=== PATIENT | female | born 1985 ===

== ENCOUNTER 2016-09-18 18:15 | Emergency (ER) | payer BC, SELFPAY ==
[2016-09-18 18:25] VITALS: BP 141/89; PULSE 93; RESP 20; TEMP 97.5; O2SAT 99
[2016-09-18] MEDS ORDERED: Lidocaine 1% w Epi 1:100,000 Inj ONE (18:25)
[2016-09-18] MEDS ORDERED: Absorbable Gelatin Sponge Size 12-7 ONE (18:25)
[2016-09-18] MEDS ORDERED: Absorbable Gelatin Sponge Size 12-7 TP ONE (18:33)
--- NOTE | 2016-09-18 18:33 | ED PDOC ---
Upper Extremity Pain/Injury Time Seen by Provider: 09/18/16 18:27 Chief Complaint (Nursing): Abnormal Skin Integrity Chief Complaint (Provider): Left 3rd Finger Laceration History Per: Patient History/Exam Limitations: no limitations Onset/Duration Of Symptoms: Hrs (just prior to arrival) Current Symptoms Are (Timing): Still Present Additional Complaint(s): Pamela Light is a 31 year old female, with no pertinent past medical history, who presents to the ED on 09/18/16, accompanied by her , for the evaluation of a laceration that she had sustained to her left 3rd finger just prior to arrival as she had been cooking. Bleeding has persisted despite direct pressure and bandage, prompting ED visit. Denies numbness/tingling. Tetanus vaccination is up to date (4 years ago). Of note, patient is currently . PMD: [place] Past Medical History Reviewed: Historical Data, Nursing Documentation, Vital Signs Vital Signs: Last Vital Signs Temp 97.5 F L 09/18/16 18:22 Pulse 93 H 09/18/16 18:22 Resp 20 09/18/16 18:22 BP 141/89 09/18/16 18:22 Pulse Ox 99 09/18/16 18:22 - Medical History PMH: No Chronic Diseases - Surgical History Surgical History: No Surg Hx - Family History Family History: States: Unknown Family Hx - Living Arrangements Living Arrangements: With Family - Immunization History Hx Tetanus Toxoid Vaccination: Yes - Home Medications Home Medications: Ambulatory Orders Medication Instructions Recorded No Known Home Med 09/18/16 - Allergies Allergies/Adverse Reactions: Allergies Allergy/AdvReac Type Severity Reaction Status Date / Time No Known Allergies Allergy Verified 09/18/16 18:22 Review of Systems Musculoskeletal: Positive for: Hand Pain (left 3rd finger laceration) Physical Exam - Reviewed Nursing Documentation Reviewed: Yes Vital Signs Reviewed: Yes - Physical Exam Appears: Positive for: Non-toxic, No Acute Distress Extremity: Positive for: Normal ROM (FROM of all fingers on left hand), Capillary Refill (<2 seconds), Other (4mm x 2mm area of complete avulsion noted to tip of left 3rd finger, minimal active bleeding) Neurologic/Psych: Positive for: Alert, Oriented. Negative for: Motor/Sensory Deficits - ECG O2 Sat by Pulse Oximetry: 99 (RA) Pulse Ox Interpretation: Normal Medical Decision Making Medical Decision Makin:27 Initial Impression: fingertip avulsion Initial Plan: * Wound Care * Tylenol 975mg PO * Reevaluation Sterile water and Betadyne used to clean/sterilize wound. Gelfoam dressing ( with 0.2ml of 1% Lidocaine w/epi applied to sponge) subsequently applied. Advised patient to not remove dressing for 24 hours. Upon provider reevaluation patient is feeling better, is medically stable, and requires no further treatment in the ED at this time. Patient will be discharged home. Counseling was provided and all questions were answered regarding diagnosis and need for follow up with either the ED or with her PMD in 2 days for reevaluation of wound. There is agreement to discharge plan. Return if symptoms persist or worsen. Clinical Impression: fingertip avulsion Scribe Attestation: Documented by Tere Martinez, acting as a scribe for Javier Garcia PA-C. Provider Scribe Attestation: All medical record entries made by the Scribe were at my direction and personally dictated by me. I have reviewed the chart and agree that the record accurately reflects my personal performance of the history, physical exam, medical decision making, and the department course for this patient. I have also personally directed, reviewed, and agree with the discharge instructions and disposition. Disposition - Clinical Impression Clinical Impression: Avulsion, finger tip - Patient ED Disposition Is Patient to be Admitted: No Counseled Patient/Family Regarding: Studies Performed, Diagnosis, Need For Followup - Disposition Referrals: Tirso Rodarte MD [Medical Doctor] - Disposition Time: 19:31 Condition: IMPROVED Additional Instructions: keep clean and dry follow up in 2 days for wound check with primary doctor, hand specialist or the ED return for pain, bleeding, fever, swelling or any new concerns. Instructions: Finger Laceration (ED), Skin Avulsion (ED) Print Language: GREENLANDIC
== END 2016-09-18 19:31 | disposition home or self-care (01) ==
LOC: H.ER 18:15
DX: S61.203A Unspecified open wound of left middle finger without damage to nail, initial encounter (principal); W45.8XXA Other foreign body or object entering through skin, initial encounter; Y93.G3 Activity, cooking and baking

== ENCOUNTER 2016-09-22 08:25 | Inpatient (IN) | payer BC, OTHER ==
[2016-09-22] MEDS: Lactated Ringer's 1,000 ML IV SCH ×2 (11:00→17:10)
[2016-09-22] MEDS: Oxytocin 30 units/LR 500ML 500 ML IV SCH (11:30)
[2016-09-22 12:11] VITALS: BP 127/89; PULSE 85; RESP 16; TEMP 97.6
[2016-09-22] MEDS ORDERED: Fentanyl/Bupivacaine HCl 250 ML EPI ONE (12:17)
[2016-09-22] MEDS ORDERED: Bupivacaine HCl 0.25% PF (10 ml) Inj ONE ×2 (12:17→15:06)
[2016-09-22 12:21] LABS: BASO % 0.3 % (0.0-2.0); EOS % 0.1 % (0.0-4.0); HEMATOCRIT 30.9 % (34.0-47.0); LYMPH # 1.6 K/uL (1.0-4.3); LYMPH % 13.1 % (20.0-40.0); MEAN CELL VOLUME 83.4 fl (81.0-99.0); MEAN CORPUSCULAR HEMOGLOBIN 27.9 pg (27.0-31.0); MEAN CORPUSCULAR HGB CONC 33.5 g/dL (33.0-37.0); MEAN PLATELET VOLUME 8.5 fl (7.2-11.7); MONO # 1.4 K/uL (0.0-0.8); MONO % 11.2 % (0.0-10.0); NEUT # 9.2 K/uL (1.8-7.0); NEUT % 75.3 % (50.0-75.0); NRBC % 0.1 % (0.0-0.0); RED CELL DISTRIBUTION WIDTH 14.3 % (11.5-14.5); WHITE BLOOD COUNT 12.2 K/uL (4.8-10.8)
[2016-09-22] MEDS ORDERED: Oxycodone/Acetaminophen 5/325 mg Tab PO PRN ×2 (17:12)
--- NOTE | 2016-09-22 17:16 | OBDS ---
MATERNAL INFORMATION Provider Comments: Delivered a live baby boy 4:57 PM the baby was bulb suctioned on the perineum tra nsferred to maternal chest. the cord was clamped and cut 3 vessels noted cord blood was obtained and sent to the lab. The placenta was delivered at 5:03 PM intact the estimated blood loss was 250 mL the re were no vaginal lacerations the mother tolerated the procedure well baby to nursery with Apgars of 9 and 9 weighing 3280 g LABOR SUMMARY EDC: 09/25/2016 00:00 No. Babies in Womb: 1 Attempted: No Labor Anesthesia: Epidural LABOR INFORMATION Onset of Labor: 09/22/2016 03:00 Complete Dilatation: 09/22/2016 16:40 Oxytocin: Augmentation Group B Beta Strep: Negative Antibiotics # of Doses: na Antibiotics Time of Last Dose: na Steroids Given: None Reason Steroids Not Administered: Not Applicable MEMBRANES Membranes Rupture Method: Artificial Rupture of Membranes: 09/22/2016 13:05 Length of Rupture (hrs): 3.87 Amniotic Fluid Color: Bloody Amniotic Fluid Amount: Scant Amniotic Fluid Odor: Normal STAGES OF LABOR Stage 1 hrs: 13 Stage 1 min: 40 Stage 2 hrs: 0 Stage 2 min: 17 Stage 3 hrs: 0 Stage 3 min: 6 Total Time in Labor hrs: 14 Total Time in Labor min: 3 VAGINAL DELIVERY Episiotomy: None Laceration Extension: N/A Laceration Type: None Initial Vag Sponge Count: 5 Final Vag Sponge Count: 5 Initial Vag Sharps Count: 0 Final Vag Sharps Count: 0 Sponge Count Correct: Yes Sharps Count Correct: N/A Count Comment: correct BABY A INFORMATION Delivery Date/Time: 09/22/2016 16:57 Method of Delivery: Vaginal Born in Route : No : N/A Forceps: Outlet Vacuum Extraction: Successful Shoulder Dystocia : No SHOULDER DYSTOCIA BABY A Infant Delivery Date/Time: 09/22/2016 16:57 PRESENTATION/POSITION BABY A Presentation: Cephalic Cephalic Presentation: Vertex Vertex Position: Left Occipital Anterior Breech Presentation: N/A PLACENTA INFORMATION BABY A Placenta Delivery Time : 09/22/2016 17:03 Placenta Method of Delivery: Spontaneous Placenta Status: Delivered SCORES BABY A Heart Rate 1 min: >100 bpm Resp Effort 1 min: Good Cry Reflex Irritability 1 min: Cough or Sneeze or Pulls Away Muscle Tone 1 min: Active Motion Color 1 min: Body [place], Extremities Blue SCORE 1 MIN: 9 Heart Rate 5 min: >100 bpm Resp Effort 5 min: Good Cry Reflex Irritability 5 min: Cough or Sneeze or Pulls Away Muscle Tone 5 min: Active Motion Color 5 min: Body [place], Extremities Blue SCORE 5 MIN: 9 INFORMATION BABY A Gestational Age at Delivery: 39.4 Gestational Status: Term Outcome : Liveborn Infant Condition : Stable Infant Sex: Male IDENTIFICATION/MEDS BABY A ID Band Number: [id number] ID Band Location: Left Leg; Left Arm WEIGHT/LENGTH BABY A Infant Birthweight (gms): 3280 Infant Weight (lb): 7 Weight (oz): 4 CORD INFORMATION BABY A No. Cord Vessels: 3 Nuchal Cord : N/A Cord Blood Taken: Yes Infant Suction: Mouth; Nose
--- NOTE | 2016-09-23 07:52 | OBPPN ---
Datetime: 09/23/2016 07:48 PP Pain Prov: Within normal limits PP Abdomen/Uterus Prov: Normal PP Lochia Prov: Normal PP Extremities Prov: Normal PP Progress Prov: Normal PP Impression Prov: Normal progression PP Plan Prov: Continue present management PP Progress Note Prov: PPD 1 s/p , doing well, breast and bottle feeding Continue current management Vital Signs Provider PP: Reviewed
[2016-09-23 08:05] LABS: HEMATOCRIT 26.9 % (34.0-47.0); MEAN CORPUSCULAR HEMOGLOBIN 27.6 pg (27.0-31.0); MEAN CORPUSCULAR HGB CONC 33.7 g/dL (33.0-37.0); RED CELL DISTRIBUTION WIDTH 14.3 % (11.5-14.5); WHITE BLOOD COUNT 15.7 K/uL (4.8-10.8)
[2016-09-23] MEDS: Prenatal Multivit/Folic Acid/Iron Tab PO SCH (08:54)
[2016-09-23] MEDS: Benzocaine/Menthol SPRAY TOP PRN (08:55)
[2016-09-23] MEDS: Oxytocin 30 units/LR 500ML 500 ML IV SCH (10:30)
[2016-09-24] MEDS: Benzocaine/Menthol SPRAY TOP PRN (09:24)
[2016-09-24] MEDS: Prenatal Multivit/Folic Acid/Iron Tab PO SCH (09:25)
--- NOTE | 2016-09-24 10:47 | OBPPN ---
Datetime: 09/24/2016 10:10 PP Pain Prov: Within normal limits PP Nausea Prov: Denies PP Flatus Prov: Yes PP BM Prov: Yes PP Breasts Prov: Normal PP Heart Prov: Normal PP Lungs Prov: Normal PP Abdomen/Uterus Prov: Normal PP Lochia Prov: Normal PP Vulva/Perineum Prov: Normal PP CVA Tenderness Prov: Normal PP Extremities Prov: Normal PP Impression Prov: Normal progression PP Plan Prov: Continue present management; Discharge PP Impression Other Prov: Anemia asymptomatic PP Progress Note Prov: A; S/P day 2 Anemia asymptomatic P DIscharge home follow up in 6w Vital Signs Provider PP: Reviewed; Within Normal Limits
--- NOTE | 2016-09-24 10:47 | OBDCSUM ---
Datetime: 09/24/2016 10:45 Discharged to, Provider: Home Follow up at, Provider: Marla Disch Instr Activity: Normal activity Disch Instr Diet: Regular Discharge Instructions, Provider: Routine instructions given Discharge Diagnosis, Provider: Term Delivered Follow up in weeks, Provider: 6w Disch Referrals: None Contraception discussed, Prov: Yes Disch Activity Restrictions: No sexual activity; Nothing in vagina - [place], tampons, douche
== END 2016-09-24 13:45 | disposition home or self-care (01) | DRG 775 ==
LOC: H.EROB2 08:25 → H.L&D 10:19 → H.OB/GYN 21:29
PROVIDERS: ADMIT Obstetrics & Gynecology Gynecology; ATTEND Obstetrics & Gynecology Gynecology
PROC: 10E0XZZ Delivery of Products of Conception, External Approach (ICD-10-PCS; principal; 2016-09-22)
PROC: 10907ZC Drainage of Amniotic Fluid, Therapeutic from Products of Conception, Via Natural or Artificial Opening (ICD-10-PCS; 2016-09-22)
PROC: 4A1HXCZ Monitoring of Products of Conception, Cardiac Rate, External Approach (ICD-10-PCS; 2016-09-22)
DX: O99.02 Anemia complicating childbirth (principal); Z37.0 Single live birth; Z3A.39 39 weeks gestation of pregnancy